=== PATIENT | female | born 1955 | race Caucasian/White ===

== ENCOUNTER 2017-08-08 06:44 | Day surgery (SDC) | payer OTHER ==
[~2017-08-08 06:44] MED LIST: Buffered Lidocaine 0.9% SYRIN* 5 ML/SYR SYRINGE INTRADERM ONE; Famotidine IV* 10 MG/ML 2 ML (20 mg) IV ONE; Scopolamine 1.5 mg* PATCH TRANSDERM SCH; Scopolamine PATCH Remove* 1 NOTE MISC PATCH OFF SCH
[2017-08-08] MEDS ORDERED: ceFAZolin 2 GM PREMIX (*) 2 GM/50 ML BAG IVPB ONE (06:56)
[2017-08-08] MEDS ORDERED: Dexamethasone IV* 4 MG/ML 1 ML (4 MG) ONE (06:57)
[2017-08-08] MEDS ORDERED: Famotidine IV* 10 MG/ML 2 ML (20 mg) ONE (06:57)
[2017-08-08] MEDS: Dexamethasone IV* 4 MG/ML 1 ML (4 MG) IV SLOW PU ONE (07:17)
[2017-08-08] MEDS ORDERED: fentaNYL* 50 MCG/ML 5 ML VIAL (250 MCG VIAL) ONE (07:24)
[2017-08-08] MEDS ORDERED: Midazolam* 1 MG/ML 5 ML VIAL (5 MG) ONE (07:24)
[2017-08-08] MEDS ORDERED: Bupivacaine 0.25% SDV* 30 ML ONE (07:25)
[2017-08-08] MEDS ORDERED: Propofol* 10 MG/ML 20 ML BTL IV PUSH ONE (07:27)
[2017-08-08] MEDS ORDERED: Lidocaine 2% PF * 5 ML VIAL ONE (07:27)
[2017-08-08] MEDS ORDERED: Ketorolac INJ* 30 MG/ML 1 ML VIAL ONE (07:27)
[2017-08-08] MEDS ORDERED: Ondansetron INJ* 2 MG/ML VIAL ONE ×2 (07:27→11:01)
[2017-08-08] MEDS ORDERED: Scopolamine 1.5 mg* PATCH ONE (07:34)
[2017-08-08] MEDS ORDERED: oxyCODONE/Acetamin 5/325 MG* TAB PO PRN (07:36)
[2017-08-08] MEDS ORDERED: fentaNYL* 50 MCG/ML 2 ML VIAL (100 MCG VIAL) IV PRN (07:36)
[2017-08-08] MEDS ORDERED: DiMENhydriNATE IV* 50 MG/ML VIAL IV PUSH PRN (07:36)
[2017-08-08] MEDS ORDERED: HYDROmorphone INJ* 1 MG/ML CARPUJECT SYRINGE IV PRN (07:36)
[2017-08-08] MEDS ORDERED: Ondansetron INJ* 2 MG/ML VIAL IV PRN (07:36)
[2017-08-08] MEDS ORDERED: Atracurium* 10 MG/ML 10 ML VIAL ONE (07:39)
[2017-08-08] MEDS ORDERED: EPHEDrine (Pressors)* 50 MG/ML VIAL ONE (08:27)
[2017-08-08] MEDS ORDERED: Glycopyrrolate IV* 0.2 MG/ML 1 ML VIAL ONE (08:29)
[2017-08-08] MEDS ORDERED: HYDROcodone/ACETAMIN 5-325 MG* 1 TAB ONE (10:01)
[2017-08-08 12:44] VITALS: BP 128/79
--- NOTE | 2017-08-08 14:06 | OP ---
DATE OF OPERATION: 08/08/17 - [facility] DATE OF : 55 SURGEON: Karl Alfaro MD SPECIAL DEPUTY SHERIFF: JOLENE Coto. An drug safety assistant was needed for the entirety of the procedure to aid in positioning of the arm and retraction. ANESTHESIOLOGIST: Dr. Stiles. ANESTHESIA: General. PRE-OP DIAGNOSIS: Right distal biceps tendon rupture. POST-OP DIAGNOSIS: Right distal biceps tendon rupture. OPERATIVE PROCEDURE: Repair of right distal biceps tendon rupture. INDICATIONS: Pat felt and heard a pop couple of weeks ago. She has had terrible pain in the anterior elbow since then. The arm is very weak. I talked to her about her treatment options. She had wanted to proceed with surgery. ESTIMATED BLOOD LOSS: 5 mL. COMPLICATIONS: None. FINDINGS: Insertion of rupture as expected. DESCRIPTION OF PROCEDURE: Pat was seen in the preoperative holding area. The correct site, side, and procedure were identified. We came back to the operating room, the arm was prepped and draped in the usual fashion. A time- out was performed. I exsanguinated the arm with the Esmarch and the tourniquet was inflated to 250 mmHg. A 2-cm transverse incision was made right in the elbow flexion crease. Dissection was carried down bluntly and the fascia was opened with the Metzenbaum scissors. The distal biceps tendon rupture was delivered into the wound. The adhesions were all lysed bluntly. The end of the tendon was placed on a tongue depressor and the ruptured edge was freshened up to a nice clean healthy tendon edge. I then placed a #2 FiberWire whipstitch up into the distal end of the last 4 to 5 cm of the tendon. I then placed a #5 Ethibond suture in similar fashion. I then placed a Sissy clamp between the radial tuberosity and the ulna. The tip of the Sissy clamp came out right in the center of my expected incision posteriorly. I then flexed up the elbow. I made a 3-cm incision posteriorly. The full thickness flaps were raised off the fascia. The fascia was opened longitudinally. The FCU muscle fibers were split. This took down to the supinator, which I split with the Bovie cautery to expose the bursa overlying the radial tuberosity. The curette and rongeur were used to remove all of the soft tissue off of the biceps tuberosity. I then used a 4-mm pineapple constanza to make a trough in the radial tuberosity. A 2.0 drill bit was used to place 2 drill tunnels with the forearm more pronated into the trough, by a centimeter of cortical bone. I then used a #5 Ethibond suture to suture shuttle my sutures down into the posterior wound. A 0-Prolene suture was used to suture shuttle the one tail of Ethibond and one tail of FiberWire through each of the bone tunnels respectively. I then pulled traction on my #5 Ethibond and I seated the tendon and very nicely into the bony trough. I then tied off the #2 FiberWire. I then tied off the #5 Ethibond suture. The repair was excellent. The end of the tendon was seated very nicely in the trough. The forearm was sitting in 30 degrees of supination. Everything was looking very good. There was absolutely no gapping or toggle in the repair. I went ahead and irrigated everything out. The fascia posteriorly was closed with 2- 0 Vicryl suture and the skin was closed with 3-0 Monocryl and Steri-Strips. The anterior incision was closed with 3-0 Monocryl and a Steri-Strips. The operative sites were infiltrated with 0.25% plain Marcaine. The wounds were dressed with Xeroform, 4x4, sterile Webril and a posterior slab with a lateral buttress was placed. Tourniquet was deflated. The hand pinked up immediately. She was taken to the recovery room in stable condition. [id number] #: [id number] TORI
== END 2017-08-08 11:24 | disposition home or self-care (01) ==
LOC: OREAST 06:44
PROVIDERS: ATTEND Orthopaedic Surgery Hand Surgery
DX: S46.211A Strain of muscle, fascia and tendon of other parts of biceps, right arm, initial encounter (principal); X50.9XXA Other and unspecified overexertion or strenuous movements or postures, initial encounter; Y93.54 Activity, bowling; Y92.9 Unspecified place or not applicable; I10 Essential (primary) hypertension; E78.00 Pure hypercholesterolemia, unspecified; E03.9 Hypothyroidism, unspecified; Z87.891 Personal history of nicotine dependence; E66.9 Obesity, unspecified; Z68.35 Body mass index [BMI] 35.0-35.9, adult
CPT/HCPCS: 88304; A9270-GY; J0690; J1100; J1885; J2250; J2405; J2704; J3010